=== PATIENT | female | born 1995 | race Caucasian/White ===

== ENCOUNTER 2020-09-29 19:09 | Emergency (ER) | payer MEDICAID ==
[2020-09-29] MEDS ORDERED: Sodium Chloride 0.9% 1,000 ML IV ONE (19:26)
[2020-09-29] MEDS ORDERED: Sodium Chloride 0.9% 10 ML Syringe FLUSH PRN (19:26)
--- NOTE | 2020-09-29 19:35 | EDM.PDOC ---
ED HPI GENERAL MEDICAL PROBLEM - General Chief Complaint: Abdominal Pain Stated Complaint: LOWER ABDOMINAL PAIN Time Seen by Provider: 09/29/20 19:15 Source of Information: Reports: Patient History Limitations: Reports: No Limitations - History of Present Illness INITIAL COMMENTS - FREE TEXT/NARRATIVE: 25 YO WM PRESENTS TO ER WITH A 1 DAY HISTORY OF LOWER ABDOMINAL PAIN. PT REPORTS SHE IS 7 DAYS POST OF A FULL TERM VAGINAL DELIVERY. 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 PT REPORTS LOWER ABDOMINAL PAIN IS CRAMPY IN CHARACTER AND COMES AND GOES. PT CURRENTLY WITHOUT PAIN. PT DENIES FEVER/CHILLS, NO NAUSEA/VOMITING, NO LOWER BACK PAIN. PT DENIES DYSURIA, URINARY FREQUENCY BUT DOES REPORT SOME URINARY URGENCY SINCE DELIVERY. PT DENIES ANY PAST MEDICAL PROBLEMS OR CURRENT MEDICATIONS. Onset Date: 09/28/20 Location: Reports: Abdomen Quality: Reports: Other (CRAMPING) Severity: Mild Improves with: Reports: None Worsens with: Reports: None Associated Symptoms: Reports: No Other Symptoms. Denies: Fever/Chills, Nausea/Vomiting, Shortness of Breath Right Lower Abdomen Pain Score (Numeric/FACES): 6 - Related Data Allergies Allergy/AdvReac Type Severity Reaction Status Date / Time No Known Allergies Allergy Verified 09/29/20 19:54 Home Meds: Home Meds Pnv No.95/Ferrous Fum/Folic AC [ Caplet] 1 each PO DAILY 09/29/20 [History] ED ROS GENERAL - Review of Systems Review Of Systems: See Below Constitutional: Reports: No Symptoms HEENT: Reports: No Symptoms Respiratory: Reports: No Symptoms Cardiovascular: Reports: No Symptoms Endocrine: Reports: No Symptoms GI/Abdominal: Reports: Abdominal Pain : Reports: No Symptoms Musculoskeletal: Reports: No Symptoms Skin: Reports: No Symptoms Neurological: Reports: No Symptoms Psychiatric: Reports: No Symptoms Hematologic/Lymphatic: Reports: No Symptoms Immunologic: Reports: No Symptoms ED EXAM, GI/ABD - Physical Exam Exam: See Below Exam Limited By: No Limitations General Appearance: Alert, WD/WN, No Apparent Distress Head: Atraumatic, Normocephalic Neck: Normal Inspection, Supple, Non-Tender, Full Range of Motion Respiratory/Chest: No Respiratory Distress, Lungs Clear, Normal Breath Sounds, No Accessory Muscle Use, Chest Non-Tender Cardiovascular: Normal Peripheral Pulses, Regular Rate, Rhythm, No Edema, No Gallop, No JVD, No Murmur, No Rub GI/Abdominal Exam: Normal Bowel Sounds, Soft, No Organomegaly, No Distention, No Abnormal Bruit, No Mass, Tender (LOWER ABDOMINAL TENDERNESS) Back Exam: Normal Inspection, Full Range of Motion, NT Extremities: Normal Inspection, Normal Range of Motion, Non-Tender, Normal Capillary Refill, No Pedal Edema Neurological: Alert, Oriented, CN II-XII Intact, Normal Cognition, Normal Gait, No Motor/Sensory Deficits Psychiatric: Normal Affect, Normal Mood Skin Exam: Warm, Dry, Intact, Normal Color, No Rash Lymphatic: No Adenopathy Course - Vital Signs Last Recorded V/S: Last Vital Signs Temp 97.6 F 09/29/20 19:25 Pulse 82 09/29/20 19:25 Resp 16 09/29/20 19:25 BP 97/68 09/29/20 19:25 Pulse Ox 98 09/29/20 19:25 - Orders/Labs/Meds Orders: Active Orders 24 hr Category Date Time Status Peripheral IV Care [RC] . DIRECTED Care 09/29/20 19:26 Active Sodium Chloride 0.9% [Normal Saline] 1,000 ml Med 09/29/20 19:26 Active IV .BOLUS Sodium Chloride 0.9% [Saline Flush] Med 09/29/20 19:26 Active 10 ml FLUSH Q8HR PRN Peripheral IV Insertion Adult [OM.PC] Routine Oth 09/29/20 19:26 Ordered Medication Orders Sodium Chloride (Normal Saline) 1,000 mls @ 999 mls/hr IV .BOLUS ONE Stop: 09/29/20 20:26 Last Admin: 09/29/20 19:40 Dose: 999 mls/hr Documented by: OLAMIDE Sodium Chloride (Sodium Chloride 0.9% 10 Ml Syringe) 10 ml FLUSH Q8HR PRN PRN Reason: keep vein open Labs: Laboratory Tests 09/29/20 09/29/20 09/29/20 Range/Units 19:30 19:30 19:35 WBC 13.72 H (5.00-10.00) 10^3/uL RBC 4.41 (3.80-5.50) 10^6/uL Hgb 11.5 L (12.0-16.0) g/dL Hct 36.2 L (37.0-47.0) % MCV 82.1 (82.0-92.0) fL MCH 26.1 L (27.0-31.0) pg MCHC 31.8 L (32.0-36.0) g/dL RDW 12.4 (11.5-14.5) % Plt Count 335 (150-400) 10^3/uL MPV 9.1 (7.4-10.4) fL Immature Gran % (Auto) 0.6 (0.0-5.0) % Neut % (Auto) 82.7 H (50.0-70.0) % Lymph % (Auto) 13.3 L (20.0-40.0) % Hidalgo % (Auto) 2.4 (2.0-8.0) % Eos % (Auto) 0.9 L (1.0-3.0) % Baso % (Auto) 0.1 (0.0-1.0) % Neut # (Auto) 11.35 H (2.50-7.00) 10^3/uL Lymph # (Auto) 1.82 (1.00-4.00) 10^3/uL Hidalgo # (Auto) 0.33 (0.10-0.80) 10^3/uL Eos # (Auto) 0.12 (0.10-0.30) 10^3/uL Baso # (Auto) 0.02 (0.00-0.10) 10^3/uL Immature Gran # (Auto) 0.08 (0.00-0.50) 10^3/uL Sodium 139 (136-145) mmol/L Potassium 3.4 L (3.5-5.1) mmol/L Chloride 101 (98-107) mmol/L Carbon Dioxide 28.8 (21.0-32.0) mmol/L Anion Gap 12.6 (5-15) mmol/L BUN 8 (7-18) mg/dL Creatinine 0.74 (0.51-1.17) mg/dL Est Cr Clr Drug Dosing 109.85 mL/min Estimated GFR (MDRD) > 60 mL/min Glucose 76 (70-140) mg/dL Calcium 8.1 L (8.7-10.3) mg/dL Total Bilirubin 0.3 (0.2-1.0) mg/dL AST 27 (15-37) U/L ALT 51 (14-63) U/L Alkaline Phosphatase 348 H (46-116) U/L Total Protein 7.5 (6.4-8.2) g/dL Albumin 2.84 L (3.40-5.00) g/dL Lipase 66 L (73-393) U/L Specimen Type Urinvoid Urine Color Yellow (YELLOW) Urine Appearance Slightly cloudy H (CLEAR) Urine pH 7.0 (5.0-9.0) Ur Specific Switzer 1.015 (1.005-1.030) Urine Protein Negative (NEGATIVE) mg/dL Urine Glucose (UA) Negative (NEGATIVE) mg/dL Urine Ketones Negative (NEGATIVE) mg/dL Urine Occult Blood Large H (NEGATIVE) Urine Nitrite Negative (NEGATIVE) Urine Bilirubin Negative (NEGATIVE) Urine Urobilinogen 0.2 (0.2-1.0) E.U./dL Ur Leukocyte Esterase Moderate H (NEGATIVE) Urine RBC 5-10 H (0-5) /HPF Urine WBC 0-5 (0-5) /HPF Ur Epithelial Cells Rare /LPF Urine Bacteria Rare (NONE TO FEW) /HPF Meds: Medications Generic Name Dose Route Start Last Admin Trade Name Suhasq PRN Reason Stop Dose Admin Sodium Chloride 1,000 mls @ 999 mls/hr 09/29/20 19:26 09/29/20 19:40 Normal Saline IV 09/29/20 20:26 999 mls/hr .BOLUS ONE Administration Sodium Chloride 10 ml 09/29/20 19:26 Sodium Chloride 0.9% 10 Ml Syringe FLUSH Q8HR PRN keep vein open Departure - Departure Time of Disposition: 20:24 Disposition: Home, Self-Care 01 Condition: Good Clinical Impression: Abdominal pain Qualifiers: Abdominal location: lower abdomen, unspecified Qualified Code(s): R10.30 - Lower abdominal pain, unspecified - Discharge Information Instructions: Pelvic Pain, Female, Plvy-ci-Jolk Referrals: PCP,Not In Area [Family Provider] - Forms: ED Department Discharge Additional Instructions: 1. DISCHARGE HOME 2. MOTRIN 600MG EVERY 6 HOURS X 5 DAYS FOR CRAMPING 3. FOLLOW UP WITH [facility]GAR BOILER/PCP NEXT 48 HOURS FOR RECHECK 4. RETURN TO ER FOR WORSENING SYMPTOMS Sepsis Event Note (ED) - Focused Exam Vital Signs: Vital Signs Temp Pulse Resp BP Pulse Ox 09/29/20 19:25 97.6 F 82 16 97/68 98 - My Orders Last 24 Hours: My Active Orders 09/29/20 19:26 Peripheral IV Care [RC] . DIRECTED Sodium Chloride 0.9% [Normal Saline] 1,000 ml IV .BOLUS Sodium Chloride 0.9% [Saline Flush] 10 ml FLUSH Q8HR PRN Peripheral IV Insertion Adult [OM.PC] Routine - Assessment/Plan Last 24 Hours: My Active Orders 09/29/20 19:26 Peripheral IV Care [RC] . DIRECTED Sodium Chloride 0.9% [Normal Saline] 1,000 ml IV .BOLUS Sodium Chloride 0.9% [Saline Flush] 10 ml FLUSH Q8HR PRN Peripheral IV Insertion Adult [OM.PC] Routine Assessment:: 1. LOWER ABDOMINAL CRAMPING POST Plan: 1. DISCHARGE HOME 2. MOTRIN 600MG EVERY 6 HOURS X 5 DAYS FOR CRAMPING 3. FOLLOW UP WITH SUGAR BOILER/PCP NEXT 48 HOURS FOR RECHECK 4. RETURN TO ER FOR WORSENING SYMPTOMS
[2020-09-29 20:17] LABS: ANION GAP 12.6 mmol/L (5-15); CHLORIDE,CL 101 mmol/L (98-107); SODIUM,NA 139 mmol/L (136-145)
[2020-09-29] MEDS ORDERED: Ketorolac 30 MG/ML SDV IVPUSH ONE (20:28)
== END 2020-09-29 20:40 | disposition home or self-care (01) ==
LOC: KA.ED 19:09 → SUPCPDRO 19:09 → KA.ED 20:40
DX: R10.31 Right lower quadrant pain (principal)
CPT/HCPCS: 36415; 80053; 81001; 83690; 85025; 96374; 99284; J1885; J7030